=== PATIENT | male | born 1955 | race Caucasian/White ===

== ENCOUNTER 2023-02-24 16:08 | Outpatient (CLI) | payer MEDICARE, SELFPAY ==
--- NOTE | 2023-02-24 16:20 | US_ITS ---
WS: [id number] ULTRASOUND SOFT TISSUES posterior RIGHT foot. HISTORY: RIGHT foot POSSIBLE FOREIGN BODY COMPARISON: None available. TECHNIQUE: 2-D and color Doppler imaging is submitted. No soft tissue abnormality is identified. There is shadowing in the area of palpable concern which is probably enthesopathy may be related to the Achilles tendon. US/US soft tissue/extremity [id number] IMPRESSION: 1. No definite soft tissue abnormality is identified. 2. Recommend RIGHT foot radiograph to evaluate for enthesopathy near the Achil les tendon attachment.
== END 2023-02-24 16:09 | disposition home or self-care (01) ==
PROVIDERS: PCP Nurse Practitioner Family; Visit Provider Nurse Practitioner Family
DX: S99.921A Unspecified injury of right foot, initial encounter (principal); X58.XXXA Exposure to other specified factors, initial encounter
CPT/HCPCS: 76882